=== PATIENT | female | born 1960 | race Caucasian/White ===

== ENCOUNTER 2019-07-03 21:51 | Emergency (ER) | payer BC, OTHER ==
[~2019-07-03] VITALS: Ht 157.5 cm; Wt 63.5 kg
[~2019-07-03 21:51] MED LIST: IRON1TAB PO
[2019-07-03 22:37] VITALS: BP_SYST 157
--- NOTE | 2019-07-03 22:38 | NUR ---
Patient triaged and placed in waiting room. VSS and patient appears in no acute distress at this time. Accompanied by self, awaiting available bed, and MD notified of need for MSE.
--- NOTE | 2019-07-03 22:46 | NUR ---
Per proof clerk, pt LWBS.
== END 2019-07-03 22:46 | disposition left against medical advice (07) ==
LOC: SED 21:51
DX: J11.1 Influenza due to unidentified influenza virus with other respiratory manifestations (principal); Z53.21 Procedure and treatment not carried out due to patient leaving prior to being seen by health care provider

== ENCOUNTER 2022-05-30 22:47 | Emergency (ER) | payer BC, OTHER ==
[~2022-05-30] VITALS: Ht 157.5 cm; Wt 68.0 kg
[2022-05-30 22:54] VITALS: BP_SYST 160
--- NOTE | 2022-05-30 23:00 | NUR ---
PT HERE C/O LT ARM PAIN X1 WK. PER PT GOT WORSEN TODAY. PT DENIES TRAUMA. SEH STATES THAT SHE HAS ARTHRITIS ON HER NECK. PT AAOX4, NO SOB NOTED AND NAD. PENDING MD LIN
--- NOTE | 2022-05-31 01:02 | NUR ---
Patient to ER bed [facility] CHAIR to gown for evaluation. Side rails up. Report given to VERONICA HAMMONDS(REG).
--- NOTE | 2022-05-31 01:04 | NUR ---
DR. ROSA SEEN AND EXAMINE PT
[2022-05-31] MEDS ORDERED: KETOROLAC TROMETHAMINE 60 MG/2 ML VIAL IM ONE (01:30)
[2022-05-31] MEDS ORDERED: NEU300 PO (01:39)
[2022-05-31] MEDS ORDERED: METH-634 PO (01:39)
--- NOTE | 2022-05-31 01:48 | NUR ---
Patient given written and verbal discharge instructions and verbalizes understanding. ER MD Mcrae discussed with patient the results and treatment provided. Patient in stable condition. ID arm band removed. Rx of Robaxin and Neurontin sent to prefered pharmacy. Patient educated on pain management and to follow up with PMD. Opportunity for questions provided and answered. Medication side effect fact sheet provided.
[2022-05-31 01:51] VITALS: BP_SYST 154
== END 2022-05-31 01:51 | disposition home or self-care (01) ==
LOC: SED 22:47
DX: M54.12 Radiculopathy, cervical region (principal); M54.2 Cervicalgia; M79.602 Pain in left arm; Z79.899 Other long term (current) drug therapy
CPT/HCPCS: 99283; 96372; J1885